=== PATIENT | female | born 1950 | race Caucasian/White ===

== ENCOUNTER 2016-05-22 11:11 | Observation (INO) | payer OTHER ==
[~2016-05-22 11:11] MED LIST: ADVAI100I PO; ALBU8I INH; ATOR40TA PO; BACT2OIN TOP; BUSP5 PO; CLIN1CAP6 PO; CYMB60CA PO; FLON0.053; GABA300C3 PO; MONT10TA2 PO; MULT-65 PO; PERC10TA27 PO; PROT40TA PO; REQU4TAB3 PO; SUMA50TA2 PO; TIZA4 PO; VITA-13 PO; VITA500T49 PO
[2016-05-22 11:18] VITALS: BP 131/88; PULSE 89; RESP 20; TEMP 98.6; O2SAT 99
[2016-05-22] MEDS ORDERED: SODIUM CHLORIDE 0.9% FLUSH 5 ML FLUSH IVF PRN (11:30)
[2016-05-22] MEDS ORDERED: ASPIRIN 81 MG CHEW TAB PO ONE (11:30)
--- NOTE | 2016-05-22 11:37 | PD ---
HPI Chief Complaint: Pain: Acute or Chronic Time Seen by Provider: 11:33 Travel History International Travel<30 days: No Contact w/Intl Traveler<30days: No Traveled to known affect area: No History of Present Illness HPI 65-year-old female presents to the emergency department for evaluation of neck and chest pain that started yesterday afternoon. She states that she was washing dishes when she noticed the pain in her right neck. She states that it and it radiated down to her right shoulder and right chest and now is in the entire anterior chest. She states the pain is sharp and intermittent. She denies a prior history of similar pain. The patient denies any traumatic injury. Patient denies any fevers or chills. No cough or congestion. Patient states she vomited once today, but no abdominal pain. She denies any leg edema. No hemoptysis. She denies any recent travel or recent surgeries. Patient reports history of cholecystectomy, hysterectomy, rheumatoid arthritis, neuropathy, hyperlipidemia, chronic back pain, GERD. Patient does state that she has some difficulty swallowing as well. According to the record, the patient had a normal stress test in 2013. She denies any recent stress test or cardiac catheterization. She denies any history of DVT or PE. PFSH Past Medical History Arthritis: Yes (RHEUMATOID ARTHRITIS) Anxiety: No Depression: Yes Heart Rhythm Problems: No Cancer: Yes (CERVICAL) Cardiac Catheterization: No Cardiovascular Problems: Yes High Cholesterol: No Chemotherapy: No Chest Pain: Yes Congestive Heart Failure: No COPD: Yes Diabetes: No Diminished Hearing: No Endocrine: No Gastrointestinal Disorders: Yes GERD: Yes Genitourinary: Yes (HX KIDNEY INFECTION) Hiatal Hernia: Yes Hypertension: Yes (BORDERLINE) Immune Disorder: No Implanted Vascular Access Dvce: No Musculoskeletal: Yes (DDD, chronic low back pain) Neurologic: Yes (RESTLESS LEG SYNDROME) Psychiatric: Yes Reproductive: Yes (HYSTERECTOMY FOR CERVICAL CANCER) Respiratory: Yes (COPD) Immunizations Current: Yes Migraines: Yes Myocardial Infarction: Yes (SILENT) Radiation Therapy: No Sleep Apnea: No Thyroid Disease: No Tetanus Vaccination: < 5 Years ?: Not Menopausal: Yes : 1 Para: 1 Past Surgical History Abdominal Surgery: Yes (CHOLECYSTECTOMY) AICD: No Cholecystectomy: Yes Coronary Artery Bypass Graft: No Gynecologic Surgery: Yes (CERVICAL CA) Hysterectomy: Yes Pacemaker: No Other Surgery: Yes (cholecystectomy, rotator cuff repair and hysterectomy) Family History Family Myocardial Infarction: Yes (FATHER OF [place] AT AGE 57) Social History Alcohol Use: No Tobacco Use: Yes (04/02 PPD) Substance Use: No Allergies-Medications (Allergen,Severity, Reaction): Coded Allergies: Codeine (Verified Allergy, Severe, VOMITING, 05/22/16) Wellbutrin (Verified Allergy, Severe, HIVES, 05/22/16) Dust (Verified Adverse Reaction, Mild, OTHER ENVIRONMENTAL ALLERGENS, 05/22) Reported Meds & Prescriptions Reported Meds & Active Scripts Active Reported Advair Diskus Inh (Fluticasone-Salmeterol Inh) 250-50 Mcg/Blist Aer 1 Puff INH BID Rinse mouth after use. Ventolin Hfa 18 GM Inh (Albuterol Sulfate) 90 Mcg/Act Aer 2 Puff INH BID PRN Fluticasone Nasal [place] 50 Mcg/Act Naspr 50 Mcg EACH NARE BID 50 mcg/spray Sumatriptan (Sumatriptan Succinate) 50 Mg Tab 50 Mg PO ONCE PRN If a satisfactory response has not been obtained at 2 hours, a second dose may be administered Multiple Vitamin 1 Tab 1 Tab PO DAILY Q10-Figqjd (Methylcobalamin) 1 Mg Chew 1 Mg CHEW DAILY D3 Ultra Strength (Cholecalciferol) 5,000 Unit Cap 5,000 Units PO DAILY Duloxetine DR (Duloxetine HCl) 60 Mg Capdr 60 Mg PO DAILY Pantoprazole (Pantoprazole Sodium) 40 Mg Tab 40 Mg PO BID Tizanidine (Tizanidine HCl) 4 Mg Cap 4 Mg PO BID Buspirone (Buspirone HCl) 5 Mg Tab 5 Mg PO BID Atorvastatin (Atorvastatin Calcium) 40 Mg Tab 40 Mg PO HS Montelukast (Montelukast Sodium) 10 Mg Tab 10 Mg PO HS Ropinirole 4 Mg Tab 4 Mg PO HS Gabapentin 400 Mg Cap 400 Cap PO HS Oxycodone-Acetaminophen 10-325 mg Tab 1 Tab PO Q6H PRN Review of Systems Except as stated in HPI: all other systems reviewed are Neg Physical Exam Narrative GENERAL: Well-developed well-nourished female patient, ambulatory. Afebrile. SKIN: Warm and dry. HEAD: Normocephalic. Atraumatic. ENT: Mucosa pink and moist. No erythema or exudates. No uvular edema. No uvular , palatal, or tonsillar deviation. Airway patent. Nasal turbinates appear normal without nasal blood, purulent drainage or septal hematoma. Bilateral tympanic membranes are clear without erythema or perforation. EYES: No scleral icterus. No injection or drainage. NECK: Supple, trachea midline. No JVD or lymphadenopathy. CARDIOVASCULAR: Regular rate and rhythm without murmurs, gallops, or rubs. RESPIRATORY: Breath sounds equal bilaterally. No accessory muscle use. Lungs sounds are clear to auscultation. GASTROINTESTINAL: Abdomen soft, non-tender, nondistended. MUSCULOSKELETAL: No cyanosis, or edema. I am able to reproduce the right shoulder pain with movement of the right shoulder as well as the anterior chest pain with palpation of the chest wall. BACK: Nontender without obvious deformity. No CVA tenderness. Data Data Last Documented VS Vital Signs Date Time Temp Pulse Resp B/P Pulse Ox O2 Delivery O2 Flow Rate FiO2 05/22/16 11:52 99 05/22/16 11:18 98.6 89 20 131/88 Orders Electrocardiogram (05/22/16 11:29) Basic Metabolic Panel (Bmp) (05/22/16 11:29) Ckmb (Isoenzyme) Profile (05/22/16 11:29) Complete Blood Count With Diff (05/22/16 11:29) D-Dimer (05/22/16 11:29) Magnesium (Mg) (05/22/16 11:29) Troponin I (05/22/16 11:29) Chest, Single Ap (05/22/16 11:29) Ecg Monitoring (05/22/16 11:29) Bilateral Bp Monitoring (05/22/16 11:29) Iv Access Insert/Monitor (05/22/16 11:29) Oximetry (05/22/16 11:29) Oxygen Administration (05/22/16 11:29) Aspirin Chew (Aspirin Chew) (05/22/16 11:30) Sodium Chloride 0.9% Flush (Ns Flush) (05/22/16 11:30) Admit Order (Ed Use Only) (05/22/16 12:39) Labs Laboratory Tests Test 05/22/16 11:40 White Blood Count 7.9 TH/MM3 Red Blood Count 4.44 MIL/MM3 Hemoglobin 14.1 GM/DL Hematocrit 41.9 % Mean Corpuscular Volume 94.2 FL Mean Corpuscular Hemoglobin 31.7 PG Mean Corpuscular Hemoglobin 33.6 % Concent Red Cell Distribution Width 14.6 % Platelet Count 250 TH/MM3 Mean Platelet Volume 8.2 FL Neutrophils (%) (Auto) 58.7 % Lymphocytes (%) (Auto) 31.5 % Monocytes (%) (Auto) 8.4 % Eosinophils (%) (Auto) 0.5 % Basophils (%) (Auto) 0.9 % Neutrophils # (Auto) 4.6 TH/MM3 Lymphocytes # (Auto) 2.5 TH/MM3 Monocytes # (Auto) 0.7 TH/MM3 Eosinophils # (Auto) 0.0 TH/MM3 Basophils # (Auto) 0.1 TH/MM3 CBC Comment DIFF FINAL Differential Comment D-Dimer Quantitative (PE/DVT) 0.45 MG/L FEU Sodium Level 141 MEQ/L Potassium Level 3.5 MEQ/L Chloride Level 105 MEQ/L Carbon Dioxide Level 28.6 MEQ/L Anion Gap 7 MEQ/L Blood Urea Nitrogen 7 MG/DL Creatinine 0.86 MG/DL Estimat Glomerular Filtration 67 ML/MIN Rate Random Glucose 104 MG/DL Calcium Level 9.2 MG/DL Magnesium Level 1.8 MG/DL Total Creatine Kinase 48 U/L Troponin I LESS THAN 0.02 NG/ML MDM Medical Decision Making Medical Screen Exam Complete: Yes Emergency Medical Condition: Yes Medical Record Reviewed: Yes Interpretation(s) chest x-ray - CONCLUSION: No acute disease. Differential Diagnosis Chest wall pain versus muscle strain versus ACS versus PE versus pneumonia versus GERD Narrative Course 65-year-old female presents to the emergency department for evaluation of right neck, right shoulder, anterior chest pain that started yesterday afternoon has been intermittent. EKG, CBC, BMP, CK, troponin, magnesium, d-dimer are ordered and pending. Chest x-ray is ordered and pending. Patient is given aspirin 162 mg by mouth. EKG shows SR, HR 81, no acute ST changes. CBC is unremarkable. BMP is unremarkable. CK is 48. Troponin is less than 0.02. Magnesium is 1.8. D- dimer is not elevated at 0.45. Chest x-ray shows no acute disease. Patient will be admitted to the [facility] for further evaluation and disposition. Diagnosis Primary Impression: Chest pain Qualified Code: R07.9 - Chest pain, unspecified type Admitting Information Admitting Physician Requests: Demetrice Meyers May 22, 2016 11:37
[2016-05-22 11:52] VITALS: O2SAT 99
[2016-05-22 11:55] LABS: AUTOMATED NEUTROPHIL # 4.6 TH/MM3 (1.8-7.7); BASOPHIL # 0.1 TH/MM3 (0-0.2); BASOPHIL % 0.9 % (0.0-2.0); EOSINOPHIL % 0.5 % (0.0-4.0); HEMATOCRIT 41.9 % (35.0-46.0); LYMPH % 31.5 % (9.0-44.0); LYMPHOCYTE # 2.5 TH/MM3 (1.0-4.8); MEAN CELL VOLUME 94.2 FL (80.0-100.0); MEAN CORPUSCULAR HEMOGLOBIN 31.7 PG (27.0-34.0); MEAN CORPUSCULAR HGB CONC 33.6 % (32.0-36.0); MONO % 8.4 % (0.0-8.0); NEUT % 58.7 % (16.0-70.0); PLATELET COUNT 250 TH/MM3 (150-450); RED BLOOD COUNT 4.44 MIL/MM3 (4.00-5.30); RED CELL DISTRIBUTION WIDTH 14.6 % (11.6-17.2); WHITE BLOOD COUNT 7.9 TH/MM3 (4.0-11.0)
[2016-05-22 11:57] LABS: HEMO FLAGS DIFF FINAL
--- NOTE | 2016-05-22 12:03 | RADRPT ---
EXAM DATE/TIME: 05/22/2016 11:29 [facility] COMPARISON: CHEST SINGLE AP, December 08, 2015, 17:24. INDICATIONS : Pain in right neck,jaw, chest and right arm since yesterday, short of breath, smoker, no chest surger y MEDICAL HISTORY : Chronic obstructive pulmonary disease. Hypertension. SURGICAL HISTORY : None. ENCOUNTER: Initial ACUITY: 1 day PAIN SCORE: 9/10 LOCATION: Right chest FINDINGS: A single view of the chest demonstrates the lungs to be symmetrically aerated without evidence of mas s, infiltrate or effusion. The cardiomediastinal contours are unremarkable. Osseous structures are intact. CONCLUSION: No acute disease. Mohamud Lopze MD on May 22, 2016 at 12:01 Board Certified Radiologist. This report was verified electronically.
[2016-05-22] MEDS ORDERED: MONT10TA4 PO (12:04)
[2016-05-22] MEDS ORDERED: ATOR40TA16 PO (12:04)
[2016-05-22] MEDS ORDERED: FLUT50SP EACH NARE (12:04)
[2016-05-22] MEDS ORDERED: OXYC1TAB36 PO (12:04)
[2016-05-22] MEDS ORDERED: B12-1CHW CHEW (12:04)
[2016-05-22] MEDS ORDERED: GABA400C5 PO (12:04)
[2016-05-22] MEDS ORDERED: BUSP5TAB PO (12:04)
[2016-05-22] MEDS ORDERED: TIZA4CAP3 PO (12:04)
[2016-05-22] MEDS ORDERED: ADVA250A INH (12:04)
[2016-05-22] MEDS ORDERED: SUMA50TA2 PO (12:04)
[2016-05-22] MEDS ORDERED: DULO1CAP3 PO (12:04)
[2016-05-22] MEDS ORDERED: ROPI4TAB PO (12:04)
[2016-05-22] MEDS ORDERED: MULTTAB67 PO (12:04)
[2016-05-22] MEDS ORDERED: D3 U5000 PO (12:04)
[2016-05-22] MEDS ORDERED: PANT40TA3 PO (12:04)
[2016-05-22] MEDS ORDERED: VENTAER INH (12:04)
[2016-05-22 12:18] LABS: ANION GAP 7 MEQ/L (5-15); BICARBONATE 28.6 MEQ/L (21.0-32.0); BLOOD UREA NITROGEN 7 MG/DL (7-18); CHLORIDE 105 MEQ/L (98-107); GLOMERULAR FILTRATION RATE 67 ML/MIN (>89); MAGNESIUM 1.8 MG/DL (1.5-2.5); POTASSIUM 3.5 MEQ/L (3.5-5.1); SODIUM (NA) 141 MEQ/L (136-145)
[2016-05-22 12:26] LABS: CREATINE KINASE 48 U/L (26-192)
[2016-05-22] MEDS ORDERED: ONDANSETRON HCL 4 MG/2 ML VIAL IV PRN (13:15)
[2016-05-22] MEDS ORDERED: ACETAMINOPHEN 500 MG CPLT PO PRN (13:15)
[2016-05-22] MEDS ORDERED: NITROGLYCERIN 0.4 MG SL 25 TABS/BTL SL PRN (13:15)
--- NOTE | 2016-05-22 13:30 | PD ---
Physical Exam Narrative GENERAL: Well-nourished, well-developed patient. SKIN: Warm and dry. HEAD: Normocephalic and atraumatic. EYES: No injection or drainage. ENT: No nasal drainage noted. NECK: Supple, trachea midline. Tender to right trapezius CARDIOVASCULAR: Regular rate and rhythm RESPIRATORY: No increased effort. No accessory muscle use. GASTROINTESTINAL: Abdomen soft, non-tender, nondistended. EXTREMITIES: No edema. NEUROLOGICAL: Awake and alert. Motor and sensory grossly within normal limits. Normal speech. Data Data Last Documented VS Vital Signs Date Time Temp Pulse Resp B/P Pulse Ox O2 Delivery O2 Flow Rate FiO2 05/22/16 11:52 99 05/22/16 11:18 98.6 89 20 131/88 Orders Electrocardiogram (05/22/16 11:29) Basic Metabolic Panel (Bmp) (05/22/16 11:29) Ckmb (Isoenzyme) Profile (05/22/16 11:29) Complete Blood Count With Diff (05/22/16 11:29) D-Dimer (05/22/16 11:29) Magnesium (Mg) (05/22/16 11:29) Troponin I (05/22/16 11:29) Chest, Single Ap (05/22/16 11:29) Ecg Monitoring (05/22/16 11:29) Bilateral Bp Monitoring (05/22/16 11:29) Iv Access Insert/Monitor (05/22/16 11:29) Oximetry (05/22/16 11:29) Oxygen Administration (05/22/16 11:29) Aspirin Chew (Aspirin Chew) (05/22/16 11:30) Sodium Chloride 0.9% Flush (Ns Flush) (05/22/16 11:30) Admit Order (Ed Use Only) (05/22/16 12:39) Labs Laboratory Tests Test 05/22/16 11:40 White Blood Count 7.9 TH/MM3 Red Blood Count 4.44 MIL/MM3 Hemoglobin 14.1 GM/DL Hematocrit 41.9 % Mean Corpuscular Volume 94.2 FL Mean Corpuscular Hemoglobin 31.7 PG Mean Corpuscular Hemoglobin 33.6 % Concent Red Cell Distribution Width 14.6 % Platelet Count 250 TH/MM3 Mean Platelet Volume 8.2 FL Neutrophils (%) (Auto) 58.7 % Lymphocytes (%) (Auto) 31.5 % Monocytes (%) (Auto) 8.4 % Eosinophils (%) (Auto) 0.5 % Basophils (%) (Auto) 0.9 % Neutrophils # (Auto) 4.6 TH/MM3 Lymphocytes # (Auto) 2.5 TH/MM3 Monocytes # (Auto) 0.7 TH/MM3 Eosinophils # (Auto) 0.0 TH/MM3 Basophils # (Auto) 0.1 TH/MM3 CBC Comment DIFF FINAL Differential Comment D-Dimer Quantitative (PE/DVT) 0.45 MG/L FEU Sodium Level 141 MEQ/L Potassium Level 3.5 MEQ/L Chloride Level 105 MEQ/L Carbon Dioxide Level 28.6 MEQ/L Anion Gap 7 MEQ/L Blood Urea Nitrogen 7 MG/DL Creatinine 0.86 MG/DL Estimat Glomerular Filtration 67 ML/MIN Rate Random Glucose 104 MG/DL Calcium Level 9.2 MG/DL Magnesium Level 1.8 MG/DL Total Creatine Kinase 48 U/L Troponin I LESS THAN 0.02 NG/ML MDM Supervised Visit with NISH: Yes Interpretation(s) CBC & BMP Diagram 05/22/16 11:40 EKG sinus rhythm without STEMI criteria Last 24 hours Impressions Chest X-Ray 05/22/16 1129 Signed Impressions: Service Date/Time: Sunday, May 22, 2016 11:29 - CONCLUSION: No acute disease. Mohamud Lopez MD Narrative Course I, Dr. rick, have reviewed the advance practice practitioner's documentation and am in agreement, met with the patient face to face, made the diagnosis, and the medical decision making was done by me. *My assessment and Findings: 65-year-old female presents with right sided neck pain over the past couple of days. He states today she started to develop pressure across her left chest as well so she came in. Initial workup is negative. She agrees to chest pain center observation for atypical cardiac workup Diagnosis Primary Impression: Chest pain Qualified Code: R07.9 - Chest pain, unspecified type Admitting Information Admitting Physician Requests: Observation Coni Rick MD May 22, 2016 13:30
[2016-05-22 13:39] VITALS: O2SAT 98
[2016-05-22] MEDS ORDERED: SODIUM CHLORIDE 0.9% FLUSH 5 ML FLUSH IVF SCH (21:00)
[2016-05-23] MEDS ORDERED: ASPIRIN 325 MG TAB PO SCH (09:00)
--- NOTE | 2016-05-23 22:39 | EKG ---
Date Performed: 05/22/2016 Time Performed: 11:48:42 PTAGE: 65 years EKG: Sinus rhythm MILD INTRAVENTRICULAR CONDUCTION DELAY BORDERLINE ECG PREVIOUS TRACING : 10/10/2014 12.49 Compared to prior tracing no significant change DOCTOR: Phil Sims Interpretating Date/Time 05/23/2016 22:37:54
== END 2016-05-22 14:10 | disposition left against medical advice (07) ==
LOC: NEPC 11:11 → NEDA 12:40
PROVIDERS: ADMIT Internal Medicine Interventional Cardiology; ATTEND Internal Medicine Interventional Cardiology
DX: R07.9 Chest pain, unspecified (principal); M54.2 Cervicalgia; R11.10 Vomiting, unspecified; M06.9 Rheumatoid arthritis, unspecified; K21.9 Gastro-esophageal reflux disease without esophagitis; E78.5 Hyperlipidemia, unspecified; M54.5 Low back pain; G62.9 Polyneuropathy, unspecified; R13.10 Dysphagia, unspecified; J44.9 Chronic obstructive pulmonary disease, unspecified; K44.9 Diaphragmatic hernia without obstruction or gangrene; I10 Essential (primary) hypertension; G25.81 Restless legs syndrome; G43.909 Migraine, unspecified, not intractable, without status migrainosus; I25.2 Old myocardial infarction; F17.210 Nicotine dependence, cigarettes, uncomplicated; Z79.899 Other long term (current) drug therapy
CPT/HCPCS: 71010; 80048; 82550; 83735; 84484; 85025; 85379; 93005; 99285; G0378

== ENCOUNTER 2016-09-01 19:19 | Emergency (ER) | payer OTHER ==
[~2016-09-01] VITALS: Ht 172.7 cm; Wt 82.5 kg
[~2016-09-01 19:19] MED LIST changes: +ADVA250A INH; -ADVAI100I PO; -ALBU8I INH; -ATOR40TA PO; +ATOR40TA16 PO; +B12-1CHW CHEW; -BACT2OIN TOP; -BUSP5 PO; +BUSP5TAB PO; -CLIN1CAP6 PO; -CYMB60CA PO; +D3 U5000 PO; +DULO1CAP3 PO; -FLON0.053; +FLUT50SP EACH NARE; -GABA300C3 PO; +GABA400C5 PO; -MONT10TA2 PO; +MONT10TA4 PO; -MULT-65 PO; +MULTTAB67 PO; +OXYC1TAB36 PO; +PANT40TA3 PO; -PERC10TA27 PO; -PROT40TA PO; -REQU4TAB3 PO; +ROPI4TAB PO; -TIZA4 PO; +TIZA4CAP3 PO; +VENTAER INH; -VITA-13 PO; -VITA500T49 PO
[2016-09-01 19:26] VITALS: BP 124/78; PULSE 82; RESP 20; TEMP 99; O2SAT 98
[2016-09-01] MEDS ORDERED: LISI10TA3 PO (19:42)
[2016-09-01] MEDS ORDERED: CEPH-460 PO (19:58)
--- NOTE | 2016-09-01 19:58 | PD ---
HPI Chief Complaint: Skin Problem Time Seen by Provider: 19:31 Travel History International Travel<30 days: No Contact w/Intl Traveler<30days: No Traveled to known affect area: No History of Present Illness HPI 64 year-old woman presents to the emergency department complaining of pain and redness on her right ankle that started about 2 days ago. On the distal right simpson she has a little bit the area of swelling and redness. This is worsened over the past 2 days. She has tenderness in that area. She has some pain when she ranges her ankle. She is a history of neuropathy but no history of diabetes. She otherwise has been feeling generally well. She injured that right leg in the past scars were she fell and had injuries to that leg. She has a little bit of area of scarring and dry skin in that same area. She is not sure she had an insect bite there initially or not. No other evidence of clear skin break. History Past Medical History Narrative Medical Neuropathy Hyperlipidemia Hypertension Menopausal: Yes : 1 Para: 1 Social History Alcohol Use: No Tobacco Use: Yes (/ PPD) Allergies-Medications (Allergen,Severity, Reaction): Coded Allergies: Codeine (Verified Allergy, Severe, VOMITING, 09/01/16) Wellbutrin (Verified Allergy, Severe, HIVES, 09/01/16) Celebrex (Verified Allergy, Intermediate, Hives, 09/01/16) Dust (Verified Adverse Reaction, Mild, OTHER ENVIRONMENTAL ALLERGENS, ) Reported Meds & Prescriptions Reported Meds & Active Scripts Active Reported Lisinopril 10 Mg Tab 10 Mg PO DAILY Advair Diskus Inh (Fluticasone-Salmeterol Inh) 250-50 Mcg/Blist Aer 1 Puff INH BID Rinse mouth after use. Ventolin Hfa 18 GM Inh (Albuterol Sulfate) 90 Mcg/Act Aer 2 Puff INH BID PRN Fluticasone Nasal [place] 50 Mcg/Act Naspr 50 Mcg EACH NARE BID 50 mcg/spray Sumatriptan (Sumatriptan Succinate) 50 Mg Tab 50 Mg PO ONCE PRN If a satisfactory response has not been obtained at 2 hours, a second dose may be administered Multiple Vitamin 1 Tab 1 Tab PO HS [id number] (Methylcobalamin) 1 Mg Chew 1 Mg CHEW DAILY D3 Ultra Strength (Cholecalciferol) 5,000 Unit Cap 5,000 Units PO DAILY Duloxetine DR (Duloxetine HCl) 60 Mg Capdr 60 Mg PO HS Pantoprazole (Pantoprazole Sodium) 40 Mg Tab 40 Mg PO BID Tizanidine (Tizanidine HCl) 4 Mg Cap 8 Mg PO BID Buspirone (Buspirone HCl) 5 Mg Tab 5 Mg PO BID Atorvastatin (Atorvastatin Calcium) 40 Mg Tab 40 Mg PO HS Montelukast (Montelukast Sodium) 10 Mg Tab 10 Mg PO DAILY Ropinirole 4 Mg Tab 4 Mg PO HS Gabapentin 400 Mg Cap 400 Cap PO TID Oxycodone-Acetaminophen 10-325 mg Tab 1 Tab PO Q6H PRN Review of Systems Except as stated in HPI: all other systems reviewed are Neg Physical Exam Narrative GENERAL: Well-appearing 64 year-old woman, no acute distress. SKIN: Warm and dry. CARDIOVASCULAR: Warm and well perfused. RESPIRATORY: Normal rate and effort. MUSCULOSKELETAL: Palpation of the right leg shows some scarring about the mid simpson. Distal back, proximal to the ankle, there is some discernible erythema warmth and redness. There is a little bit a raised area in the midportion of the patch of erythema, but no clear fluctuance induration or evidence or abscess. She has preserved range of motion of the ankle but states it does hurt in the area of redness when she flexes or extends the ankle. There is no evidence of joint effusion, or ankle involvement. NEUROLOGICAL: Awake and alert. No gross deficits. Data Data Last Documented VS Vital Signs Date Time Temp Pulse Resp B/P Pulse Ox O2 Delivery O2 Flow Rate FiO2 09/01/16 19:26 99.0 82 20 124/78 98 Orders Clindamycin Inj (Cleocin Inj) (09/01/16 20:00) [facility] Medical Decision Making Medical Screen Exam Complete: Yes Emergency Medical Condition: Yes Differential Diagnosis Cellulitis, insect bite, contact dermatitis, vasculitis, other Narrative Course 64 year-old woman, erythema pain and redness on her legs just a cellulitis. Tenderness to suggest DVT. No fluctuant or indurated areas to suggest abscess. Good pulses in vascularity. Recommend antibiotics, elevation, reassess. Diagnosis Primary Impression: Cellulitis of right leg Additional Instructions: Take Keflex as prescribed. Keep leg elevated for 48 hours as discussed. Follow-up with your primary doctor in 2-4 days for repeat evaluation. Return to the emergency department for any worsening pain, redness, swelling, fevers, or any other new or worsening symptoms. Med/Other Pt SpecificInfo: Prescription(s) given Scripts Cephalexin (Keflex)500 Mg [id number] Mg PO Q8H 7 Days Ref 0 Prov:Shaq Dillard MD 09/01/16 Disposition: 01 DISCHARGE HOME Condition: Stable Shaq Dillard MD Sep 01, 2016 19:58
[2016-09-01] MEDS ORDERED: CLINDAMYCIN PHOS 600 MG/4 ML VIAL IM ONE (20:00)
== END 2016-09-01 20:21 | disposition home or self-care (01) ==
LOC: PHED 19:19
DX: L03.115 Cellulitis of right lower limb (principal); E78.5 Hyperlipidemia, unspecified; I10 Essential (primary) hypertension; G62.9 Polyneuropathy, unspecified
CPT/HCPCS: 96372

== ENCOUNTER 2016-09-07 17:53 | Emergency (ER) | payer OTHER ==
[~2016-09-07 17:53] MED LIST changes: +CEPH-460 PO; +LISI10TA3 PO
[2016-09-07 17:56] VITALS: BP 176/86; PULSE 101; RESP 18; TEMP 99.3; O2SAT 98
[2016-09-07] MEDS ORDERED: LIDOCAINE 1%/EPINEPHrine 1:100,000 SOLN 20 ML VIAL INFIL ONE ×2 (18:15)
[2016-09-07] MEDS ORDERED: LIDOCAINE 1%/EPINEPHrine 1:100,000 SOLN 30 ML VIAL INFIL ONE (18:15)
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
[2016-09-07] MEDS ORDERED: CEPH-460 PO (19:11)
--- NOTE | 2016-09-07 19:18 | PD ---
Data Data Last Documented VS Vital Signs Date Time Temp Pulse Resp B/P Pulse Ox O2 Delivery O2 Flow Rate FiO2 09/07/16 17:56 99.3 101 18 176/86 98 Room Air Orders Lidocai-Epi 1%-1:100,000 Inj (Xylocaine- (09/07/16 18:15) Lidocai-Epi 1%-1:100,000 Inj (Xylocaine- (09/07/16 18:15) MDM Supervised Visit with NISH: Yes Narrative Course The history, exam, and medical decision-making in the associated mid-level provider note were completed with my assistance. I reviewed and agree with the findings presented. I attest that I had a [id number] encounter with the patient on the same day, and personally performed and documented my assessment and findings in the medical record. *My assessment and Findings: 64 year-old woman of large skin tear to left leg, complex laceration requiring closure. Called the bedside by [facility] to assist with closure. See procedure note for details of closure. Patient will be followed up. Continue antibiotics. Procedures Procedure Narrative Procedure note: Laceration repair: Left leg was anesthetized with 1% lidocaine with epinephrine, 20 mL total. There is washer 2 L of sterile saline. Laceration is complex, T-shaped, involving the simpson. There is a large area of superficial skin tear and avulsion. The wound is gaping. Small cross sections of the wound were repaired with simple interrupted sutures in the top and the bottom the medic one long gaping linear laceration with a skin tear,: It on the lateral side. 3 4-0 Vicryl sutures were buried in the fascia below the fat. Approximately 4, 4- 0 Prolene vertical mattress sutures were used to pull the wound closer together. Steri-Strips were then relayed parallel to the wound. Approximately 8 horizontal mattress sutures through the parallel Steri-Strips were then applied to reinforce the skin integrity. Vertical mattress sutures had already started to pull through the skin, they were all removed. Steri-Strips and then laid across the wound to help seal the wound edges. The superior aspect of the wound there is a avulsion with an approximately 2 x 2 centimeters area of absent skin but cannot be allowed to heal through secondary intention. Diagnosis Primary Impression: Laceration of left lower extremity Qualified Code: S81.812A - Laceration of left lower extremity, initial encounter Referrals: Primary Care Physician Patient Instructions: General Instructions, Care For Your Stitches (ED), Laceration (ED) Departure Forms: Tests/Procedures Additional Instruction: Elevate the lower extremity. Do not submerge wound in water. Sutures should stay in place for 14 days. Take the Keflex as prescribed. Follow-up with her primary doctor for recheck. Return to the emergency department if she develops new or worsening symptoms. Scripts Cephalexin (Keflex)500 Mg [id number] Mg PO Q8H #15 CAP Ref 0 Prov:Elsy Basurto [facility] 09/07/16 Disposition: 01 DISCHARGE HOME Condition: Stable Shaq Dillard MD Sep 07, 2016 19:18
== END 2016-09-07 19:55 | disposition home or self-care (01) ==
LOC: PHEFT 17:53
DX: S81.812A Laceration without foreign body, left lower leg, initial encounter (principal); E78.00 Pure hypercholesterolemia, unspecified; J44.9 Chronic obstructive pulmonary disease, unspecified; K21.9 Gastro-esophageal reflux disease without esophagitis; I10 Essential (primary) hypertension; I25.2 Old myocardial infarction; F17.200 Nicotine dependence, unspecified, uncomplicated
CPT/HCPCS: 12035

== ENCOUNTER 2016-10-17 19:01 | Emergency (ER) | payer OTHER ==
[~2016-10-17] VITALS: Ht 172.7 cm; Wt 82.0 kg
[~2016-10-17 19:01] MED LIST changes: -B12-1CHW CHEW
[2016-10-17 19:14] VITALS: BP 145/66; PULSE 88; RESP 18; TEMP 100.1; O2SAT 97
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
[2016-10-17 19:48] LABS: AUTOMATED NEUTROPHIL # 4.2 TH/MM3 (1.8-7.7); BASOPHIL # 0.1 TH/MM3 (0-0.2); BASOPHIL % 1.1 % (0.0-2.0); EOSINOPHIL # 0.2 TH/MM3 (0-0.4); EOSINOPHIL % 2.4 % (0.0-4.0); HEMATOCRIT 36.5 % (35.0-46.0); HEMO FLAGS DIFF FINAL; LYMPH % 35.3 % (9.0-44.0); LYMPHOCYTE # 2.8 TH/MM3 (1.0-4.8); MEAN CELL VOLUME 93.8 FL (80.0-100.0); MEAN CORPUSCULAR HEMOGLOBIN 31.4 PG (27.0-34.0); MEAN CORPUSCULAR HGB CONC 33.4 % (32.0-36.0); MONO % 8.9 % (0.0-8.0); NEUT % 52.3 % (16.0-70.0); PLATELET COUNT 295 TH/MM3 (150-450); RED BLOOD COUNT 3.89 MIL/MM3 (4.00-5.30); RED CELL DISTRIBUTION WIDTH 14.4 % (11.6-17.2)
[2016-10-17 19:58] LABS: POTASSIUM 3.4 MEQ/L (3.5-5.1)
[2016-10-17 20:01] LABS: BICARBONATE 28.9 MEQ/L (21.0-32.0)
--- NOTE | 2016-10-17 20:01 | RADRPT ---
EXAM DATE/TIME: 10/17/2016 19:40 [facility] COMPARISON: No previous studies available for comparison. INDICATIONS : Left distal lower leg swelling, pain post laceration 1 month ago. MEDICAL HISTORY : None. SURGICAL HISTORY : None. ENCOUNTER: Initial ACUITY: 1 month PAIN SCORE: 8/10 LOCATION: Left distal medial surface of lower leg FINDINGS: Two view examination of the left tibia demonstrates no evidence of fracture or dislocation. Bony min eralization is normal. The soft tissue structures are intact. CONCLUSION: No acute disease. Jonathan Vogel MD on October 17, 2016 at 20:00 Board Certified Radiologist. This report was verified electronically.
[2016-10-17] MEDS ORDERED: CLIN1CAP6 PO (20:13)
[2016-10-17 20:14] VITALS: BP 118/64; PULSE 73; RESP 18; O2SAT 96
[2016-10-17] MEDS ORDERED: POTASSIUM CHLORIDE 20 MEQ CONTROLLED RELEASE TAB PO ONE (20:15)
[2016-10-17] MEDS ORDERED: CLINDAMYCIN 150 MG CAP PO ONE (20:15)
== END 2016-10-17 20:42 | disposition home or self-care (01) ==
LOC: PHED 19:01
DX: L03.116 Cellulitis of left lower limb (principal)
CPT/HCPCS: 73590; 80048; 83605; 85025; 87040; 99284